=== PATIENT | male | born 1960 | race Caucasian/White ===

== ENCOUNTER 2021-11-29 19:15 | Inpatient (IN) | payer OTHER ==
[~2021-11-29] VITALS: Ht 175.3 cm; Wt 80.5 kg
[~2021-11-29 19:15] MED LIST: ACET-2247 PO; AMLO-258 PO; ASPI-1450 PO; DOCU-385 PO; FAMO20 PO; LOSA-382 PO; MECL-134 PO; NICO-803 TD
[2021-11-29 22:24] LABS: COVID AG,FIA SOURCE NASAL SWAB
[2021-11-29 22:26] LABS: GLUCOMETER DEV NAME(LOC) ERT.5; GLUCOSE,POINT OF CARE 102 MG/DL (70-110)
[2021-11-29 22:54] LABS: PROTHROMBIN TIME 10.9 SEC (9.4-11.6)
[2021-11-29 22:55] LABS: ANION GAP 10 mmol/L (8-16); CALCIUM, TOTAL 9.4 mg/dL (8.8-10.5); CARBON DIOXIDE 30 mmol/L (22-29); CHLORIDE 98 mmol/L (98-107); CREATININE 0.93 mg/dL (0.60-1.30); GLOMERULAR FILTR. RATE CALC > 60 mL/min (>60); GLUCOSE,RANDOM 100 mg/dL (70-110); POTASSIUM 3.7 mmol/L (3.5-5.1); SODIUM SERUM 138 mmol/L (136-145); UREA NITROGEN, BLOOD 11 mg/dL (7-18)
[2021-11-29 23:01] LABS: ALANINE AMINOTRANSFERASE 17 U/L (12-78); ALBUMIN 3.8 g/dL (3.4-5.0); ALKALINE PHOSPHATASE 64 U/L (46-116); ASPARTATE AMINOTRANSFERASE 18 U/L (15-37); BILIRUBIN,TOTAL 1.4 mg/dL (0.1-1.0); TOTAL PROTEIN, SERUM 7.7 g/dL (6.4-8.2)
[2021-11-29 23:11] LABS: BASOPHILS % (AUTO) 1.3 % (0.0-2.0); EOSINOPHILS % (AUTO) 2.7 % (1.0-6.0); HEMOGLOBIN 15.2 g/dL (13.5-17.5); LYMPHOCYTES # (AUTO) 1.4 K/uL (1.0-4.8); MEAN CORPUSCULAR HEMOGLOBIN 31.7 pg (26.0-34.0); MEAN CORPUSCULAR HGB CONC 34.5 G/dL (31.0-37.0); MEAN CORPUSCULAR VOLUME 92 fL (80-100); MONOCYTES # (AUTO) 1.2 K/uL (0.1-1.0); MONOCYTES % (AUTO) 11.6 % (2.0-9.0); NEUTROPHILS # (AUTO) 7.1 K/uL (1.8-7.7); NEUTROPHILS % (AUTO) 70.4 % (40.0-70.0); PLATELET COUNT (AUTO) 222 K/uL (150-450); RED BLOOD CELL COUNT(AUTO) 4.79 MIL/uL (4.50-5.90); RED CELL DISTRIBUTION WIDTH 12.7 % (11.5-14.5)
[2021-11-29] MEDS ORDERED: BISACODYL 10 MG RECTAL RECTAL SUPPOSITORY PR PRN (23:45)
[2021-11-29] MEDS ORDERED: KETOROLAC TROMETHAMINE 30 MG/ML VIAL IVP SCH (23:45)
[2021-11-29] MEDS ORDERED: IPRATROPIUM BROMIDE 0.5 MG/2.5 ML NEB SOLUTION NEB PRN (23:45)
[2021-11-29] MEDS ORDERED: ONDANSETRON HCL 4 MG/2 ML VIAL IVP PRN (23:45)
[2021-11-29] MEDS ORDERED: ACETAMINOPHEN 325 MG TABLET PO PRN ×2 (23:45)
[2021-11-29] MEDS ORDERED: ALBUTEROL SULFATE 2.5 MG/0.5 ML NEB SOLUTION NEB PRN (23:45)
[2021-11-29] MEDS ORDERED: MAGNESIUM HYDROXIDE SUSPENSION 30 ML UDCUP PO PRN (23:45)
[2021-11-29] MEDS: GABAPENTIN 300 MG CAPSULE PO SCH (23:47)
[2021-11-29] MEDS: HEPARIN SODIUM,PORCINE 5,000 UNITS/ML VIAL SQ SCH (23:47)
[2021-11-30 04:49] LABS: APPEARANCE,URINE CLEAR (CLEAR); BILIRUBIN,URINE NEGATIVE (NEGATIVE); GLUCOSE, URINE (UA) NEGATIVE (NEGATIVE); LEUKOCYTE ESTERASE ,URINE NEGATIVE (NEGATIVE); NITRATE,URINE NEGATIVE (NEGATIVE); OCCULT BLOOD,URINE SMALL (NEGATIVE); PH,URINE 5.5 (5.0-8.0); PROTEIN,URINE NEGATIVE (NEGATIVE); SPECIFIC GRAVITIY, URINE 1.016 (1.003-1.030); UROBILINOGEN,URINE <=1.0 mg/dL (<=1.0)
[2021-11-30 04:55] LABS: AMPHET/METH SCREEN,URINE NEGATIVE (NEGATIVE); BARBITURATE SCREEN, URINE NEGATIVE (NEGATIVE); BENZODIAZEPINES SCREEN,URINE NEGATIVE (NEGATIVE); CANNABINOID SCREEN,URINE POSITIVE (NEGATIVE); COCAINE SCREEN,URINE NEGATIVE (NEGATIVE); METHADONE SCREEN, URINE NEGATIVE (NEGATIVE); OPIATE SCREEN,URINE NEGATIVE (NEGATIVE)
[2021-11-30 04:56] LABS: PHENCYCLIDINE SCREEN,URINE NEGATIVE (NEGATIVE)
[2021-11-30 04:58] LABS: BACTERIA,URINE None Seen /HPF (None Seen); RBC,URINE 0-2 /HPF (0-2); WBC,URINE None Seen /HPF (0-5)
[2021-11-30] MEDS: HEPARIN SODIUM,PORCINE 5,000 UNITS/ML VIAL SQ SCH ×3 (07:31→23:38)
[2021-11-30] MEDS: GABAPENTIN 300 MG CAPSULE PO SCH ×3 (07:31→23:38)
[2021-11-30] MEDS ORDERED: DOCUSATE SODIUM 100 MG CAPSULE PO SCH (09:00)
[2021-11-30] MEDS ORDERED: GADOTERATE MEGLUMINE 10 MMOL/20 ML VIAL IVP ONE (10:02)
[2021-11-30] MEDS: FAMOTIDINE 20 MG TABLET PO SCH ×2 (10:33→21:04)
[2021-11-30] MEDS: DOCUSATE SODIUM 100 MG CAPSULE PO SCH ×2 (10:33→21:04)
[2021-11-30] MEDS: MECLIZINE HCL 25 MG TABLET PO SCH ×3 (10:39→21:04)
[2021-11-30] MEDS: LOSARTAN POTASSIUM 50 MG TABLET PO SCH ×2 (10:40→10:43)
[2021-11-30] MEDS: AmLODIPine BESYLATE 10 MG TABLET PO SCH (10:40)
[2021-11-30] MEDS: ASPIRIN 81 MG CHEWABLE TABLET PO SCH (10:41)
[2021-11-30] MEDS: NICOTINE 21 MG/24 HOUR PATCH TD SCH (10:42)
[2021-11-30] MEDS: PANTOPRAZOLE SODIUM 40 MG/VIAL IVP SCH (10:42)
[2021-11-30 11:15] VITALS: BP 132/71
[2021-11-30 15:13] VITALS: BP 129/69
[2021-11-30] MEDS: SERTRALINE HCL 100 MG TABLET PO SCH (16:06)
[2021-11-30 19:54] VITALS: BP 129/74
[2021-11-30] MEDS: TraZODone HCL 100 MG TABLET PO SCH (21:04)
[2021-11-30 23:51] VITALS: BP 113/66
[2021-12-01 04:43] VITALS: BP 125/75
[2021-12-01 07:25] VITALS: BP 131/73
[2021-12-01] MEDS ORDERED: GADOTERATE MEGLUMINE 10 MMOL/20 ML VIAL IVP ONE (07:59)
[2021-12-01] MEDS: GABAPENTIN 300 MG CAPSULE PO SCH ×2 (08:49→16:17)
[2021-12-01] MEDS: LOSARTAN POTASSIUM 50 MG TABLET PO SCH ×2 (08:49→20:44)
[2021-12-01] MEDS: FAMOTIDINE 20 MG TABLET PO SCH ×2 (08:49→20:43)
[2021-12-01] MEDS: DOCUSATE SODIUM 100 MG CAPSULE PO SCH ×2 (08:49→20:44)
[2021-12-01] MEDS: ASPIRIN 81 MG CHEWABLE TABLET PO SCH (08:49)
[2021-12-01] MEDS: MECLIZINE HCL 25 MG TABLET PO SCH ×3 (08:49→20:43)
[2021-12-01] MEDS: AmLODIPine BESYLATE 10 MG TABLET PO SCH (08:49)
[2021-12-01] MEDS: SERTRALINE HCL 100 MG TABLET PO SCH (08:50)
[2021-12-01] MEDS: HEPARIN SODIUM,PORCINE 5,000 UNITS/ML VIAL SQ SCH ×2 (08:50→16:17)
[2021-12-01] MEDS: PANTOPRAZOLE SODIUM 40 MG/VIAL IVP SCH (08:50)
[2021-12-01] MEDS: NICOTINE 21 MG/24 HOUR PATCH TD SCH (08:50)
[2021-12-01 16:27] VITALS: BP 131/71
[2021-12-01] MEDS: TraZODone HCL 100 MG TABLET PO SCH (20:43)
[2021-12-01 20:54] VITALS: BP 122/69
[2021-12-02] MEDS: GABAPENTIN 300 MG CAPSULE PO SCH ×4 (00:23→23:45)
[2021-12-02] MEDS: HEPARIN SODIUM,PORCINE 5,000 UNITS/ML VIAL SQ SCH ×4 (00:23→23:45)
[2021-12-02 00:48] VITALS: BP 116/60
[2021-12-02 05:07] VITALS: BP 120/74
[2021-12-02 07:44] VITALS: BP 116/61
[2021-12-02] MEDS: ASPIRIN 81 MG CHEWABLE TABLET PO SCH (09:35)
[2021-12-02] MEDS: AmLODIPine BESYLATE 10 MG TABLET PO SCH (09:35)
[2021-12-02] MEDS: LOSARTAN POTASSIUM 50 MG TABLET PO SCH ×2 (09:35→21:12)
[2021-12-02] MEDS: MECLIZINE HCL 25 MG TABLET PO SCH ×3 (09:35→21:12)
[2021-12-02] MEDS: SERTRALINE HCL 100 MG TABLET PO SCH (09:35)
[2021-12-02] MEDS: NICOTINE 21 MG/24 HOUR PATCH TD SCH (09:36)
[2021-12-02] MEDS: FAMOTIDINE 20 MG TABLET PO SCH ×2 (09:36→21:12)
[2021-12-02] MEDS: PANTOPRAZOLE SODIUM 40 MG/VIAL IVP SCH (09:36)
[2021-12-02] MEDS: DOCUSATE SODIUM 100 MG CAPSULE PO SCH ×2 (09:36→21:12)
[2021-12-02 11:52] VITALS: BP 132/72
[2021-12-02 16:00] VITALS: BP 138/76
[2021-12-02 20:39] VITALS: BP 129/76
[2021-12-02] MEDS: TraZODone HCL 100 MG TABLET PO SCH (21:12)
[2021-12-03 00:01] VITALS: BP 134/79
[2021-12-03 04:12] VITALS: BP 106/76
[2021-12-03 04:56] VITALS: BP 125/69
[2021-12-03 07:47] VITALS: BP 112/71
[2021-12-03] MEDS: PANTOPRAZOLE SODIUM 40 MG/VIAL IVP SCH (08:39)
[2021-12-03] MEDS: HEPARIN SODIUM,PORCINE 5,000 UNITS/ML VIAL SQ SCH ×2 (08:40→16:00)
[2021-12-03] MEDS: LOSARTAN POTASSIUM 50 MG TABLET PO SCH ×2 (08:40→20:31)
[2021-12-03] MEDS: ASPIRIN 81 MG CHEWABLE TABLET PO SCH (08:40)
[2021-12-03] MEDS: GABAPENTIN 300 MG CAPSULE PO SCH ×2 (08:41→16:04)
[2021-12-03] MEDS: FAMOTIDINE 20 MG TABLET PO SCH ×2 (08:41→20:31)
[2021-12-03] MEDS: DOCUSATE SODIUM 100 MG CAPSULE PO SCH ×2 (08:41→20:36)
[2021-12-03] MEDS: MECLIZINE HCL 25 MG TABLET PO SCH ×3 (08:41→20:31)
[2021-12-03] MEDS: AmLODIPine BESYLATE 10 MG TABLET PO SCH (08:41)
[2021-12-03] MEDS: SERTRALINE HCL 100 MG TABLET PO SCH (08:41)
[2021-12-03] MEDS: NICOTINE 21 MG/24 HOUR PATCH TD SCH (09:44)
[2021-12-03 15:04] VITALS: BP 118/74
[2021-12-03 19:45] VITALS: BP 119/69
[2021-12-03] MEDS: ZOLPIDEM TARTRATE 5 MG TABLET PO PRN (20:32)
[2021-12-03] MEDS: TraZODone HCL 100 MG TABLET PO SCH (20:32)
[2021-12-04] MEDS: HEPARIN SODIUM,PORCINE 5,000 UNITS/ML VIAL SQ SCH ×4 (00:01→23:28)
[2021-12-04] MEDS: GABAPENTIN 300 MG CAPSULE PO SCH ×4 (00:01→23:28)
[2021-12-04 04:15] VITALS: BP 108/72
[2021-12-04 07:34] VITALS: BP 132/76
[2021-12-04] MEDS: SERTRALINE HCL 100 MG TABLET PO SCH (08:18)
[2021-12-04] MEDS: FAMOTIDINE 20 MG TABLET PO SCH ×2 (08:18→20:23)
[2021-12-04] MEDS: ASPIRIN 81 MG CHEWABLE TABLET PO SCH (08:18)
[2021-12-04] MEDS: PANTOPRAZOLE SODIUM 40 MG/VIAL IVP SCH (08:18)
[2021-12-04] MEDS: DOCUSATE SODIUM 100 MG CAPSULE PO SCH ×3 (08:18→20:23)
[2021-12-04] MEDS: LOSARTAN POTASSIUM 50 MG TABLET PO SCH ×2 (08:18→20:23)
[2021-12-04] MEDS: AmLODIPine BESYLATE 10 MG TABLET PO SCH (08:18)
[2021-12-04] MEDS: MECLIZINE HCL 25 MG TABLET PO SCH ×3 (08:18→20:23)
[2021-12-04] MEDS: NICOTINE 21 MG/24 HOUR PATCH TD SCH (08:19)
[2021-12-04] MEDS ORDERED: DENTURE CLEANSER TABLET [8'S] DT PRN (13:30)
[2021-12-04] MEDS ORDERED: DENTURE ADHESIVE 68 GM CREAM DT PRN (13:30)
[2021-12-04 15:28] VITALS: BP 143/86
[2021-12-04 19:50] VITALS: BP 123/78
[2021-12-04] MEDS: TraZODone HCL 100 MG TABLET PO SCH (20:23)
[2021-12-04 20:41] LABS: GLUCOMETER DEV NAME(LOC) 5S.2B; GLUCOSE,POINT OF CARE 168 MG/DL (70-110)
[2021-12-05 04:15] VITALS: BP 129/74
[2021-12-05 08:01] VITALS: BP 129/78
[2021-12-05] MEDS: MULTIVITAMINS WITH MINERALS, THERAPEUTIC TABLET PO SCH (08:24)
[2021-12-05] MEDS: LOSARTAN POTASSIUM 50 MG TABLET PO SCH ×2 (08:24→20:04)
[2021-12-05] MEDS: HEPARIN SODIUM,PORCINE 5,000 UNITS/ML VIAL SQ SCH ×2 (08:24→16:07)
[2021-12-05] MEDS: MECLIZINE HCL 25 MG TABLET PO SCH ×3 (08:24→20:03)
[2021-12-05] MEDS: FAMOTIDINE 20 MG TABLET PO SCH ×2 (08:24→20:03)
[2021-12-05] MEDS: ASPIRIN 81 MG CHEWABLE TABLET PO SCH (08:24)
[2021-12-05] MEDS: GABAPENTIN 300 MG CAPSULE PO SCH ×2 (08:24→16:05)
[2021-12-05] MEDS: SERTRALINE HCL 100 MG TABLET PO SCH (08:24)
[2021-12-05] MEDS: AmLODIPine BESYLATE 10 MG TABLET PO SCH (08:24)
[2021-12-05] MEDS: NICOTINE 21 MG/24 HOUR PATCH TD SCH (08:24)
[2021-12-05] MEDS: DOCUSATE SODIUM 100 MG CAPSULE PO SCH ×2 (08:24→20:04)
[2021-12-05] MEDS: PANTOPRAZOLE SODIUM 40 MG/VIAL IVP SCH (08:25)
[2021-12-05 15:53] VITALS: BP 131/67
[2021-12-05 19:50] VITALS: BP 130/87
[2021-12-05] MEDS: TraZODone HCL 100 MG TABLET PO SCH (20:04)
[2021-12-06] MEDS: GABAPENTIN 300 MG CAPSULE PO SCH ×4 (00:02→23:27)
[2021-12-06] MEDS: HEPARIN SODIUM,PORCINE 5,000 UNITS/ML VIAL SQ SCH ×4 (00:03→23:28)
[2021-12-06 04:56] VITALS: BP 114/57
[2021-12-06 06:58] LABS: EOSINOPHILS % (AUTO) 2.3 % (1.0-6.0); HEMATOCRIT 43.7 % (41-53); HEMOGLOBIN 15.1 g/dL (13.5-17.5); LYMPHOCYTES # (AUTO) 3.1 K/uL (1.0-4.8); LYMPHOCYTES % (AUTO) 26.3 % (22.0-44.0); MEAN CORPUSCULAR HEMOGLOBIN 31.6 pg (26.0-34.0); MEAN CORPUSCULAR HGB CONC 34.6 G/dL (31.0-37.0); MEAN CORPUSCULAR VOLUME 91 fL (80-100); MONOCYTES # (AUTO) 0.8 K/uL (0.1-1.0); MONOCYTES % (AUTO) 6.4 % (2.0-9.0); NEUTROPHILS # (AUTO) 7.6 K/uL (1.8-7.7); PLATELET COUNT (AUTO) 334 K/uL (150-450); RED BLOOD CELL COUNT(AUTO) 4.78 MIL/uL (4.50-5.90); RED CELL DISTRIBUTION WIDTH 12.3 % (11.5-14.5)
[2021-12-06 07:08] LABS: ANION GAP 1 mmol/L (8-16); CALCIUM, TOTAL 9.3 mg/dL (8.8-10.5); CARBON DIOXIDE 36 mmol/L (22-29); CHLORIDE 101 mmol/L (98-107); CREATININE 0.83 mg/dL (0.60-1.30); GLUCOSE,RANDOM 105 mg/dL (70-110); POTASSIUM 4.1 mmol/L (3.5-5.1); SODIUM SERUM 138 mmol/L (136-145); UREA NITROGEN, BLOOD 12 mg/dL (7-18)
[2021-12-06 07:09] LABS: GLOMERULAR FILTR. RATE CALC > 60 mL/min (>60)
[2021-12-06 08:24] VITALS: BP 108/63
[2021-12-06] MEDS: SERTRALINE HCL 100 MG TABLET PO SCH (08:52)
[2021-12-06] MEDS: PANTOPRAZOLE SODIUM 40 MG/VIAL IVP SCH (08:52)
[2021-12-06] MEDS: NICOTINE 21 MG/24 HOUR PATCH TD SCH (08:52)
[2021-12-06] MEDS: DOCUSATE SODIUM 100 MG CAPSULE PO SCH ×2 (08:52→21:00)
[2021-12-06] MEDS: FAMOTIDINE 20 MG TABLET PO SCH ×2 (08:53→21:02)
[2021-12-06] MEDS: LOSARTAN POTASSIUM 50 MG TABLET PO SCH ×3 (08:53→21:02)
[2021-12-06] MEDS: MULTIVITAMINS WITH MINERALS, THERAPEUTIC TABLET PO SCH (08:53)
[2021-12-06] MEDS: ASPIRIN 81 MG CHEWABLE TABLET PO SCH (08:53)
[2021-12-06] MEDS: MECLIZINE HCL 25 MG TABLET PO SCH ×3 (08:53→21:02)
[2021-12-06] MEDS: AmLODIPine BESYLATE 10 MG TABLET PO SCH ×2 (08:53→09:00)
[2021-12-06 10:15] LABS: COVID AG,FIA SOURCE NASOPHARYNGEAL
[2021-12-06 16:09] VITALS: BP 135/78
[2021-12-06 20:21] VITALS: BP 126/73
[2021-12-06] MEDS: TraZODone HCL 100 MG TABLET PO SCH (21:02)
[2021-12-06] MEDS: ZOLPIDEM TARTRATE 5 MG TABLET PO PRN (21:02)
[2021-12-07 04:52] VITALS: BP 120/74
[2021-12-07 08:07] VITALS: BP 122/63
[2021-12-07] MEDS: ASPIRIN 81 MG CHEWABLE TABLET PO SCH (08:27)
[2021-12-07] MEDS: FAMOTIDINE 20 MG TABLET PO SCH (08:27)
[2021-12-07] MEDS: NICOTINE 21 MG/24 HOUR PATCH TD SCH (08:27)
[2021-12-07] MEDS: HEPARIN SODIUM,PORCINE 5,000 UNITS/ML VIAL SQ SCH ×2 (08:28→15:23)
[2021-12-07] MEDS: MULTIVITAMINS WITH MINERALS, THERAPEUTIC TABLET PO SCH (08:28)
[2021-12-07] MEDS: MECLIZINE HCL 25 MG TABLET PO SCH ×2 (08:28→15:23)
[2021-12-07] MEDS: SERTRALINE HCL 100 MG TABLET PO SCH (08:28)
[2021-12-07] MEDS: LOSARTAN POTASSIUM 50 MG TABLET PO SCH (08:28)
[2021-12-07] MEDS: GABAPENTIN 300 MG CAPSULE PO SCH ×2 (08:28→15:23)
[2021-12-07] MEDS: PANTOPRAZOLE SODIUM 40 MG/VIAL IVP SCH (08:28)
[2021-12-07] MEDS: AmLODIPine BESYLATE 10 MG TABLET PO SCH (08:28)
[2021-12-07] MEDS: DOCUSATE SODIUM 100 MG CAPSULE PO SCH (08:29)
[2021-12-07 15:20] VITALS: BP 112/84
[2021-12-07] MEDS ORDERED: HEPA500018 SQ (17:37)
[2021-12-07] MEDS ORDERED: GABA-1181 PO (17:37)
[2021-12-07] MEDS ORDERED: SERT-162 PO (17:38)
[2021-12-07] MEDS ORDERED: MULT-248 PO (17:38)
[2021-12-07] MEDS ORDERED: PANT40VI14 IVP (17:38)
[2021-12-07] MEDS ORDERED: AUD NEB (17:39)
[2021-12-07] MEDS ORDERED: BISA10SU11 PR (17:39)
[2021-12-07] MEDS ORDERED: TRAZ-257 PO (17:39)
[2021-12-07] MEDS ORDERED: IPRNEB IH (17:40)
[2021-12-07] MEDS ORDERED: MAGN-169 PO (17:40)
[2021-12-07] MEDS ORDERED: ONDA-104 PO (17:40)
[2021-12-07] MEDS ORDERED: ZOLP-280 PO (17:41)
== END 2021-12-07 19:15 | DRG 551 ==
LOC: EMS 19:15 → UNDOADMIN 11-30 09:39 → 5N 11-30 09:39 → UNDOADMIN 11-30 11:05 → 5N 11-30 11:05 → 6S 12-03 04:30
PROVIDERS: ADMIT Hospitalist; ATTEND Hospitalist
DX: M48.061 Spinal stenosis, lumbar region without neurogenic claudication (principal); G82.50 Quadriplegia, unspecified; U07.1 COVID-19; R26.81 Unsteadiness on feet; F17.200 Nicotine dependence, unspecified, uncomplicated; G89.29 Other chronic pain; I10 Essential (primary) hypertension; M47.819 Spondylosis without myelopathy or radiculopathy, site unspecified; Z20.822 Contact with and (suspected) exposure to COVID-19; Z78.9 Other specified health status; Z79.82 Long term (current) use of aspirin; Z79.899 Other long term (current) drug therapy
CPT/HCPCS: 70450; 70553; 71045; 72141; 72157; 72158; 80048; 80053; 81001; 82948; 82962; 84484; 85025; 85610; 85651; 85730; 86140; 86850; 86900; 86901; 87081; 92610; 93005; 97110; 97162; 97530; 99285; C9113; J1644; 36415-L1; 36415-TC; U0003

== ENCOUNTER 2022-05-06 17:58 | Emergency (ER) | payer OTHER ==
[~2022-05-06] VITALS: Ht 175.3 cm; Wt 79.5 kg
[~2022-05-06 17:58] MED LIST changes: +AUD NEB; +BISA10SU11 PR; +GABA-1181 PO; +HEPA500018 SQ; +IPRNEB IH; +MAGN-169 PO; +MULT-248 PO; +ONDA-104 PO; +PANT40VI14 IVP; +SERT-162 PO; +TRAZ-257 PO; +ZOLP-280 PO
[2022-05-06] MEDS ORDERED: LIDOCAINE 1% 10 ML VIAL SQ ONE (18:30)
[2022-05-06] MEDS ORDERED: BACITRACIN 0.9 GM PACKET OINTMENT TP ONE (18:30)
[2022-05-06 18:45] VITALS: BP 148/71
== END 2022-05-06 19:33 ==
LOC: EMS 17:59
DX: S01.81XA Laceration without foreign body of other part of head, initial encounter (principal); I10 Essential (primary) hypertension; F17.210 Nicotine dependence, cigarettes, uncomplicated; X58.XXXA Exposure to other specified factors, initial encounter; Y93.89 Activity, other specified; Y92.89 Other specified places as the place of occurrence of the external cause; Y99.8 Other external cause status
CPT/HCPCS: 99283; 12013; J3490